=== PATIENT | male | born 1970 | race Caucasian/White ===

== ENCOUNTER 2018-10-31 13:14 | Emergency (ER) | payer MEDICAID ==
[~2018-10-31] VITALS: Ht 185.4 cm; Wt 91.2 kg
[2018-10-31 13:21] VITALS: Ht 185.4 cm; Wt 91.2 kg
[2018-10-31 16:06] VITALS: BP 145/105
== END 2018-10-31 16:06 | disposition home or self-care (01) ==
LOC: ED 13:14
DX: S82.832A Other fracture of upper and lower end of left fibula, initial encounter for closed fracture (principal); S43.102A Unspecified dislocation of left acromioclavicular joint, initial encounter; I10 Essential (primary) hypertension; E11.9 Type 2 diabetes mellitus without complications; E78.00 Pure hypercholesterolemia, unspecified; V87.8XXA Person injured in other specified noncollision transport accidents involving motor vehicle (traffic), initial encounter; Y93.I9 Activity, other involving external motion; Y92.488 Other paved roadways as the place of occurrence of the external cause; Y99.8 Other external cause status
CPT/HCPCS: 82962